=== PATIENT | female | born 1965 | race African-American/Black ===

== ENCOUNTER 2020-05-21 06:20 | Observation (INO) ==
[2020-05-21] MEDS ORDERED: ONDANSETRON 4 MG/2 ML VIAL ONE (06:45)
[2020-05-21] MEDS ORDERED: ONDANSETRON 4 MG/2 ML VIAL IV STA (06:53)
[2020-05-21] MEDS ORDERED: SODIUM CHLORIDE 0.9% 1,000 ML IV STA (06:53)
[2020-05-21 07:25] LABS: Basophils % 0.4 % (0.0-0.8); Eosinophils # 0.2 10*3/uL (0.0-0.87); Eosinophils % 3.6 % (0.00-10.9); Hematocrit 29.7 VOL% (35.7-47.0); Hemoglobin 10.1 GM/DL (12.0-16.0); Immature Granulocytes % 0.2 %; Immature Granulocytes Absolute 0.01 #; Lymphocytes # 0.5 10*3/uL (1.4-4.0); Lymphocytes % 10.9 % (21.3-54.2); Mean Corpuscular Volume 88.9 FL (87-102); Mean Platelet Volume 9.9 FL (9.6-12.0); Monocytes % 10.1 % (1.7-12.7); Neutrophils % 74.8 % (38.7-73.9); Platelet Count 235 T/CUMM (130-400); Red Blood Count 3.34 MC/CUMM (3.8-5.5); Red Cell Distribution Width 15.9 % (9.3-17.3); White Blood Count 4.8 T/CUMM (4-12)
[2020-05-21 07:44] LABS: Albumin 3.8 G/DL (3.4-5.0); Calcium 10.7 MG/DL (8.5-10.1); Osmolality,Calculated 272.8 MOS/KG (273-304); Total Protein 8.3 G/DL (6.4-8.3)
[2020-05-21] MEDS ORDERED: POTASSIUM CHLORIDE 20 MEQ TABLET PO STA (08:53)
[2020-05-21] MEDS ORDERED: POTASSIUM CHLORIDE RIDER 100 ML IV ONE (09:11)
[2020-05-21] MEDS ORDERED: POTASSIUM CHLORIDE RIDER 10 MEQ in PREMIX 1 EACH IV ONE (09:12)
[2020-05-21] MEDS ORDERED: hydrALAZINE 20 MG/1 ML VIAL IV PRN (09:57)
[2020-05-21] MEDS ORDERED: BENZTROPINE 2 MG/2 ML AMP IV PRN (09:57)
[2020-05-21] MEDS ORDERED: chlorproMAZINE 25 MG TABLET PEG PRN (09:57)
[2020-05-21] MEDS ORDERED: guaiFENesin 200 MG/10 ML UDCUP PEG PRN (09:57)
[2020-05-21] MEDS ORDERED: GLUCAGON 1 MG VIAL IM PRN (09:57)
[2020-05-21] MEDS ORDERED: traMADol 50 MG TABLET PEG PRN (09:57)
[2020-05-21] MEDS ORDERED: ALPRAZolam 0.25 MG TABLET PEG PRN (09:57)
[2020-05-21] MEDS ORDERED: chlorproMAZINE INJ 25 MG in SODIUM CHLORIDE 0.9% 100 ML IV PRN (09:57)
[2020-05-21] MEDS ORDERED: ALBUTEROL/IPRATROPIUM 3 ML NEB RESP TX PRN (09:57)
[2020-05-21] MEDS ORDERED: ALUMINUM/MAGNES/SIMETH MAX STR 30 ML UDCUP PEG PRN (09:57)
[2020-05-21] MEDS ORDERED: MYLANTA/LIDO VISC 2:1 300 ML BOTTLE SWISH/SPIT PRN (09:57)
[2020-05-21] MEDS ORDERED: DOCUSATE SODIUM 100 MG CAPSULE PEG PRN (09:57)
[2020-05-21] MEDS ORDERED: MYLANTA/LIDO VISC 2:1 300 ML BOTTLE SWISH/SWAL PRN (09:57)
[2020-05-21] MEDS ORDERED: PROMETHAZINE 25 MG/1 ML VIAL IM PRN (09:57)
[2020-05-21] MEDS ORDERED: MAGNESIUM HYDROXIDE SUSP 30 ML UDCUP PEG PRN (09:57)
[2020-05-21] MEDS ORDERED: MORPHINE 4 MG/1 ML VIAL IV PRN (09:57)
[2020-05-21] MEDS ORDERED: ACETAMINOPHEN 325 MG TABLET PO PRN (09:57)
[2020-05-21] MEDS ORDERED: diphenhydrAMINE CAP 25 MG CAPSULE PEG PRN (09:57)
[2020-05-21] MEDS ORDERED: chlorproMAZINE INJ 50 MG in SODIUM CHLORIDE 0.9% 100 ML IV PRN (09:57)
[2020-05-21] MEDS ORDERED: ONDANSETRON 4 MG/2 ML VIAL IV PRN (09:57)
[2020-05-21] MEDS ORDERED: DEXTROSE 50% 25 GM/50 ML VIAL IV PRN (09:57)
[2020-05-21] MEDS ORDERED: TEMAZEPAM 7.5 MG CAPSULE PEG PRN (09:57)
[2020-05-21] MEDS ORDERED: LACTULOSE 20 GM/30 ML UDCUP PEG PRN (09:57)
[2020-05-21] MEDS ORDERED: LOPERAMIDE 2 MG CAPSULE PEG PRN ×2 (09:57)
[2020-05-21] MEDS ORDERED: POTASSIUM CHLORIDE INJ 30 MEQ in LACTATED RINGERS 1,000 ML IV SCH (10:30)
[2020-05-21] MEDS: INSULIN LISPRO 100 UNIT/ML SUBCUT SCH ×3 (12:59→21:27)
[2020-05-21] MEDS: PANTOPRAZOLE 40 MG VIAL IV SCH (13:00)
[2020-05-21] MEDS: ENOXAPARIN 30 MG/0.3 ML SYRINGE SUBCUT SCH (13:00)
[2020-05-21] MEDS: POTASSIUM CHLORIDE INJ 30 MEQ in LACTATED RINGERS 1,000 ML IV SCH ×2 (13:00→23:50)
[2020-05-21 14:56] LABS: Apearance,Urine CLEAR (Clear); Bilirubin,Urine Negative (Negative); Blood, Urine Negative (Negative); Glucose,Urine (UA) Negative (Negative); Ketones,Urine Negative (Negative); Nitrite,Urine Negative (Negative); Protein,Urine Negative; RBC,Urine 2 /HPF (0-4); Squamous Epithelial Cell,Urine Occasional /HPF (0-10); Urine Color Yellow (Yellow); Urine Specific Gravity 1.011 (1.001-1.035); Urine Urobilinogen < 2.0 EU/DL (0.2-1.0); WBC,Urine <1 /HPF (0-6)
[2020-05-22 06:44] LABS: Basophils % 0.6 % (0.0-0.8); Eosinophils # 0.2 10*3/uL (0.0-0.87); Eosinophils % 6.3 % (0.00-10.9); Hematocrit 26.9 VOL% (35.7-47.0); Hemoglobin 8.8 GM/DL (12.0-16.0); Immature Granulocytes % 0.3 %; Immature Granulocytes Absolute 0.01 #; Lymphocytes # 0.4 10*3/uL (1.4-4.0); Mean Corpuscular HGB Conc 32.7 GM/DL (32-36); Mean Corpuscular Volume 91.2 FL (87-102); Mean Platelet Volume 10.1 FL (9.6-12.0); Neutrophils % 65.8 % (38.7-73.9); Platelet Count 222 T/CUMM (130-400); Red Blood Count 2.95 MC/CUMM (3.8-5.5); Red Cell Distribution Width 16.1 % (9.3-17.3); White Blood Count 3.2 T/CUMM (4-12)
[2020-05-22 07:14] LABS: Hypochromasia 1+; Microcytosis Slight; Ovalocytes Slight; Platelet Estimate Adequate
[2020-05-22 07:19] LABS: Albumin 3.3 G/DL (3.4-5.0); Bilirubin,Total 0.7 MG/DL (0.2-1.0); Calcium 10.2 MG/DL (8.5-10.1); Osmolality,Calculated 269.5 MOS/KG (273-304); Risk Ratio 2.3; Thyroid Stimulating Hormone 1.03 uIU/ml (0.358-3.74); Total Protein 7.6 G/DL (6.4-8.3)
[2020-05-22] MEDS: INSULIN LISPRO 100 UNIT/ML SUBCUT SCH ×4 (08:20→22:25)
[2020-05-22] MEDS: PANTOPRAZOLE 40 MG VIAL IV SCH (08:42)
[2020-05-22] MEDS: POTASSIUM CHLORIDE INJ 30 MEQ in LACTATED RINGERS 1,000 ML IV SCH ×5 (08:42→22:21)
[2020-05-22] MEDS: ENOXAPARIN 30 MG/0.3 ML SYRINGE SUBCUT SCH (11:34)
[2020-05-23 06:34] LABS: Basophils % 0.6 % (0.0-0.8); Eosinophils # 0.2 10*3/uL (0.0-0.87); Eosinophils % 7.1 % (0.00-10.9); Hematocrit 25.5 VOL% (35.7-47.0); Hemoglobin 8.6 GM/DL (12.0-16.0); Lymphocytes # 0.4 10*3/uL (1.4-4.0); Lymphocytes % 11.2 % (21.3-54.2); Mean Corpuscular HGB Conc 33.7 GM/DL (32-36); Mean Corpuscular Volume 89.2 FL (87-102); Mean Platelet Volume 10.2 FL (9.6-12.0); Monocytes % 14.5 % (1.7-12.7); Neutrophils % 66.6 % (38.7-73.9); Platelet Count 205 T/CUMM (130-400); Red Blood Count 2.86 MC/CUMM (3.8-5.5); White Blood Count 3.4 T/CUMM (4-12)
[2020-05-23 06:59] LABS: Albumin 3.3 G/DL (3.4-5.0); Bilirubin,Total 0.4 MG/DL (0.2-1.0); Calcium 10.1 MG/DL (8.5-10.1); Osmolality,Calculated 276.7 MOS/KG (273-304); Total Protein 7.1 G/DL (6.4-8.3)
[2020-05-23] MEDS ORDERED: MAGNESIUM SULF RIDER 2 GM in PREMIX 1 EACH IV PRN (08:01)
[2020-05-23] MEDS ORDERED: MAGNESIUM SULF RIDER 4 GM in PREMIX 1 EACH IV PRN (08:01)
[2020-05-23] MEDS: INSULIN LISPRO 100 UNIT/ML SUBCUT SCH (08:44)
[2020-05-23] MEDS ORDERED: POTASSIUM CHLORIDE 20 MEQ/15 ML UDCUP PER TUBE PRN (08:46)
[2020-05-23] MEDS ORDERED: MAGNESIUM OXIDE 400 MG TABLET PO ONE (08:55)
[2020-05-23] MEDS ORDERED: ONDANSETRON 4 MG TABLET PO PRN (08:56)
[2020-05-23] MEDS: PANTOPRAZOLE 40 MG VIAL IV SCH (09:26)
[2020-05-23 11:14] VITALS: BP 96/58
[2020-05-23] MEDS: ENOXAPARIN 30 MG/0.3 ML SYRINGE SUBCUT SCH (11:16)
== END 2020-05-23 13:03 | disposition home health service (06) ==
LOC: EDUNIT# → EDBD → N.ED 06:20 → N.EDINP 06:20 → SUATTDRO 09:57 → N.4E 10:39
PROVIDERS: ADMIT Internal Medicine; ATTEND Internal Medicine